=== PATIENT | female | born 1940 | race Caucasian/White ===

== ENCOUNTER 2017-05-08 17:57 | Inpatient (IN) | payer OTHER ==
[~2017-05-08] VITALS: Ht 160 cm; Wt 60.8 kg
[2017-05-08 17:58] VITALS: BP 143/67
[2017-05-08] MEDS ORDERED: BUSPIRONE HCL10 MG PO (18:11)
[2017-05-08] MEDS ORDERED: TRAZODONE 150150 M1 PO (18:11)
[2017-05-08] MEDS ORDERED: PYRIDOSTIGMINE60 M1 PO (18:12)
[2017-05-08] MEDS ORDERED: ANTIVERT25 MG PO (18:12)
[2017-05-08] MEDS ORDERED: HYDRALAZINE 10M10 MG PO (18:13)
[2017-05-08] MEDS ORDERED: CIPRO XR 500 M500 MG PO (18:13)
[2017-05-08] MEDS ORDERED: FLEXERIL PO (18:13)
[2017-05-08] MEDS ORDERED: ZOCOR20 MG PO (18:14)
[2017-05-08] MEDS ORDERED: OMEPRAZOLE10 MG PO (18:14)
[2017-05-08] MEDS ORDERED: HYDRALAZINE 2525 MG PO (18:14)
[2017-05-08] MEDS ORDERED: PREVACID15 MG PO (18:15)
[2017-05-08] MEDS ORDERED: ACID REDUCER200 MG PO (18:15)
--- NOTE | 2017-05-08 18:17 | NUR ---
PT'S FAMILY STATES THAT THE PATIENT HAS ONLY ONE WORKING KIDNEY.
[2017-05-08 18:34] LABS: HEMATOCRIT 32.5 % (37.0-47.0); HEMOGLOBIN 10.5 gm/dL (12.0-15.0); MCH 28.5 pg (26.0-34.0); MCHC 32.4 g/dL (28.0-37.0); MCV 88.1 fL (80.0-100.0); MPV 7.2 fl. (7.2-11.1); NUCLEATED RBCS 0 /100WBC; PLATELET COUNT* 324 thou/uL (150-400); RBC 3.69 mil/uL (4.20-5.00); RDW-CV 15.1 % (10.5-14.5); WBC 12.5 thou/uL (4.0-11.0)
[2017-05-08 18:42] LABS: ANION GAP 9 mmol/L (7-16); BUN 10 mg/dL (7-18); CHLORIDE 98 mmol/L (98-107); CO2 27 mmol/L (21-32); GLUCOSE 135 mg/dL (70-99); POTASSIUM 3.1 mmol/L (3.5-5.1); SODIUM 134 mmol/L (136-145)
[2017-05-08 18:48] LABS: ALBUMIN 3.4 g/dL (3.4-5.0); ALKALINE PHOSPHATASE 66 U/L (46-116); MAGNESIUM 1.5 mg/dL (1.8-2.4); SGOT 23 U/L (15-37); SGPT 22 U/L (30-65); TOTAL BILIRUBIN 0.5 mg/dL (<0.1-1.0); TROPONIN-I LEVEL <0.06 ng/mL (<0.06)
[2017-05-08 18:54] LABS: URINE BILIRUBIN NEGATIVE (Negative); URINE BLOOD NEGATIVE (Negative); URINE CLARITY CLEAR; URINE COLOR YELLOW; URINE GLUCOSE-RANDOM NEGATIVE (Negative); URINE KETONES TRACE (Negative); URINE LEUKOCYTES-REFLEX NEGATIVE (Negative); URINE NITRITE-REFLEX NEGATIVE (Negative); URINE PROTEIN TRACE (Negative); URINE SPECIFIC GRAVITY >= 1.030 (1.005-1.030); URINE UROBILINOGEN 0.2 E.U./dl (0.2-1.0)
[2017-05-08 18:55] LABS: APTT 35.9 Seconds (25.0-31.3); INR 1.1; PROTIME 10.7 Seconds (9.20-11.50)
[2017-05-08 19:04] LABS: ABSOLUTE BASOPHILS 0.1 thou/uL (0.0-0.2); ABSOLUTE LYMPHOCYTES 0.9 thou/uL (0.8-5.3); ABSOLUTE NEUTROPHILS 10.5 thou/uL (1.6-8.1)
[2017-05-08 19:05] LABS: PLATELET ESTIMATE ADEQUATE
[2017-05-08 20:58] VITALS: BP 155/68
[2017-05-08 21:25] VITALS: BP 167/85
[2017-05-09 00:03] VITALS: BP 178/95
[2017-05-09 03:57] VITALS: BP 151/82
--- NOTE | 2017-05-09 06:51 | NUR ---
Pt arrived from ED at 2114. Pt's dtr states that pt has been getting more confused recently, and states she thinks she has early Alzheimer's. States pt has likely been missing/forgetting doses of medication based on amount of meds left since prescriptions filled. BP elevated upon arrival, but improved as the shift progressed. ST per monitor, rate improved from 120-130 at arrival low 100's at this time. Pt on 3L O2 per NC, and she removed it on multiple occasions early in shift. Brooks draining clear yellow urine. C/O back pain with repositioning and movement. Oriented to self, but not always oriented to place and situation. Will continue to monitor.
[2017-05-09 08:12] VITALS: BP 167/90
[2017-05-09 09:51] LABS: MAGNESIUM 1.9 mg/dL (1.8-2.4); POTASSIUM 3.5 mmol/L (3.5-5.1)
--- NOTE | 2017-05-09 10:57 | NUR ---
ASSUMED CARE OF PT THIS AM AROUND 0715- DIE TROUBLE SHOOTER IN PLACE ORDERED, TRACING SR THIS AM- UPON ASSESSMENT PT NOTED TO BE RESTING IN BED- PT A&O 1-2 WITH NOTED CONFUSION-ASSIST X1 WITH TRANSFERS- CONTINENT OF BOWEL, HOANG IN PLACE D/D CLEAR/YELLOW URINE- LCTA, DIMINISHED IN LUNG BASES- VSS, O2 SAT 99% ON 3L VIA NC- NO DYSPNEA NOTED-ABDOMEN SOFT/ROUND/NON-TENDER, BS X4 QUADS- BM UNKOWN AT THIS TIME- IV NOTED TO LEFT AC INTACT AND SL, IV ABT GIVEN THIS AM PRESCRIBED- MG AND K+ REDARW THIS AM POST REPLACEMENT NOTED AT= K=-3.5, ADN MG 1.9- PT C/O PAIN 07/31 TO BACK THIS AM- DARK/QUIET ROOM AND REPOSITIONED PROVIDED- CALL LIGHT AND PERSONAL BELONGINGS WITH IN REACH- BED ALARM IN PLACE AND WORKING FOR PT SAFETY- HOURLY ROUNDS IN PLACE R/T SAFETY/NEEDS- ALL NEEDS MET AT THIS TIME-WCTM
[2017-05-09 11:32] VITALS: BP 165/88
--- NOTE | 2017-05-09 15:12 | NUR ---
CM ASSESSMENT: Pt is A&O. at bedside. Normally independent with ADLs, Pt states that she has a walker, cane and RW at home that she can use as needed. does most of the cooking and cleaning. Hx of HH, but do not remember the name of the agency. Hx of Skilled, said he thinks that she was at [place]. Pt does not wear home o2. Supportive family that is involved in POC. Pt's goal is to return home once medically stable. stated that he wants her home, but stated "she has to be able to get up and move, I've got a bad knee, I can't help her like that." Following for dc needs.
[2017-05-09 16:03] VITALS: BP 153/86
--- NOTE | 2017-05-09 17:35 | EKG ---
[place] [address] ELECTROCARDIOGRAM REPORT Name: THAO ROCHA Room: [address] ADM IN .R.#: [id number] Admission: 05/08/17 Attend Phys: Eliel Pfeiffer Discharge: Date of : 38 Report #: [id number] THIS REPORT FOR: //name// [facility] ED Test Date: 2017-05-08 Test Time: 18:05:15 Pat Name: THAO ROCHA Department: Room: [facility] Gender: F [place]: Halima NELSON : 1940 Requested By: Nohemy Peguero Order Number: [id number] MD: Zeke Park Measurements Intervals [place] Rate: 109 P: CO: QRS: -5 QRSD: 109 T: 209 QT: 336 QTc: 453 Interpretive Statements Atrial tachycardia Abnormal R-wave progression, early transition Repol abnrm suggests ischemia, anterolateral Compared to ECG 12/04/2006 06:28:41 Early repolarization now present Possible ischemia now present Sinus rhythm no longer present Electronically Signed On 05-09-2017 17:34:52 CORE ANALYST by Zeke Park [email or web address] <ELECTRONICALLY SIGNED> By: Zeke Park MD, FACC 05/09/17 1734 1805 1805 Zeke Park MD, FAC /EPI
--- NOTE | 2017-05-09 18:18 | NUR ---
PT CURRENTLY RESTING IN BED, DAUGHTER AT SIDE VISITTING- FINANCIAL COMPLIANCE EXAMINER CONTINUED ORDERED TRACING SR/ST THIS SHIFT- IV TO LEFT AC INTACT AND SL- GOOD PO INTAKE NOTED WITH MEALS- HOANG CONTINUED D/D CLEAR YELLOW URINE THIS SHIFT- PT UP TO BED SIDE THIS SHIFT, TOLERATING WELL- PT C/O PAIN THIS SHIFT, PRN HYDROCODONE ORDERS RECIVED AND GIVEN AT 1626 THIS SHIFT, PT REPORTS PAIN TO BE IMPROVED WITH MEDICATION- CALL LIGHT AND PERSOANL BELONGINGS WITH IN REACH- BED ALARM IN PLACE AND WORKING FOR PT SAFETY- FREQUENT CHECKS IN PLACE R/T SAFETY/NEEDS- ALL NEEDS MET AT THIS TIME-WCTM
[2017-05-09 19:58] VITALS: BP 128/66
[2017-05-10] VITALS (7 sets, daily range): BP systolic 112–156; BP diastolic 50–78
[2017-05-10 05:04] LABS: HEMATOCRIT 31.8 % (37.0-47.0); HEMOGLOBIN 10.4 gm/dL (12.0-15.0); MCH 28.6 pg (26.0-34.0); MCHC 32.7 g/dL (28.0-37.0); MCV 87.7 fL (80.0-100.0); MPV 7.7 fl. (7.2-11.1); RBC 3.63 mil/uL (4.20-5.00); RDW-CV 15.6 % (10.5-14.5); WBC 10.9 thou/uL (4.0-11.0)
--- NOTE | 2017-05-10 07:05 | NUR ---
Pt's HR 110s to 120s most of shift, then up to 140 for 20-30 minuites this am; now back down to 110s. Pt intermittently confused as to place and situation. Pleasant and cooperative. Ran low fever overnight, T-max 100. Will continue to monitor.
[2017-05-10 09:27] LABS: URINE BILIRUBIN NEGATIVE (Negative); URINE BLOOD NEGATIVE (Negative); URINE CLARITY CLEAR; URINE COLOR YELLOW; URINE GLUCOSE-RANDOM NEGATIVE (Negative); URINE KETONES 1+ (Negative); URINE LEUKOCYTES 2+ (Negative); URINE NITRITE POSITIVE (Negative); URINE PROTEIN 2+ (Negative); URINE UROBILINOGEN 0.2 E.U./dl (0.2-1.0)
[2017-05-10 09:40] LABS: BACTERIA >30 Many /HPF (None Seen); CASTS None Seen /LPF (None Seen); CRYSTALS None Seen /LPF (None Seen); SQUAMOUS 0-3 Few /LPF (0-3); TRANSITIONAL EPITHEL CELL 4-10 Moderate /LPF (None Seen); URINE RBC None Seen /HPF (0-2); URINE WBC >25 Many /HPF (0-5)
--- NOTE | 2017-05-10 10:04 | NUR ---
ASSUMED CARE OF PT THIS AM AROUND 0715- AIR BAG BUILDER IN PLACE ORDERED, TRACING ST THIS AM- UPON ASSESSMENT PT NOTED TO BE RESTING IN BED- PT A&O X1-2 WITH NOTED CONFUSSION- CONTINENT VS INCONTINENT OF BOWEL AND BLADDER- ASSIST X1 WITH TRANSFERS- LCTA, DIMINISHED IN BASES- VSS, O2 SAT 97% ON 3L VIA NC- OCCASSIONAL COUGH NOTED- ABDOMEN SOFT/ROUND/NON-TENDER, BS X4 QUADS- IV NOTED TO LEFT AC INTACT AND SL- IV ABT GIVEN THIS AM, NO ADVERSE REACTIONS TO NOTE-PT UP TO CHAIR THIS AM WITH BREAKFAST, GOOD PO INTAKE NOTED- CHEST X-RAY RESULTS ALONG WITH CLINICAL FINDINGS AND ST COMMUNICATED TO THIS AM- ORDERS RECIVED FOR BMP, IRON, PRE-ALBUMIN, UA THEN HOANG TO BE REMOVED- UA COLLECED AND SENT TO LAB, HOANG D/C'D THIS AM ORDERED- LIDOCAIN PATCH TO BACK INDICATED, MUSCLE RUB APPLIED WELL- PT DENIES ANY C/O PAIN/DISCOMFORT AT THIS TIME- CALL LIGHT AND PERSONAL BELONGINGS WITH IN REACH- BED/CHAIR ALARMS IN PLACE R/T SAFETY- HOURLY ROUNDS IN PLACE R/T SAFETY/NEEDS- ALL NEEDS MET AT THIS TIME-WCTM
[2017-05-10 10:37] LABS: CALCIUM 9.2 mg/dL (8.5-10.1); CREATININE 1.1 mg/dL (0.6-1.3); POTASSIUM 3.5 mmol/L (3.5-5.1)
[2017-05-10 11:19] LABS: % SATURATION 4 % (20-39); IRON 12 ug/dL (50-175)
--- NOTE | 2017-05-10 18:57 | NUR ---
PT CURRENLTY RESTING IN BED, WATCHING TV- CARDIAC MONIOTOR IN PLACE ORDERED, TRACING ST- HR NOTED TO BE ELEVATED IN 120'S-PT NOTED WITH LOW GRADE TEMP, AND UA POSITIVE- NORCO PRN GIVEN AT 1700 FOR TEMP 100.6 AND PAIN- HR WITH UT IMPROVEMENT- MACHINE MAINTENANCE SUPERVISOR NOTIFIED WITH ORDERS NOTED FOR NS @ 100ML/HR TO BE STARTED AND UA CULTURE TO BE COMPLETED- TEMP RECHECKED AND NOTED TO BE 98.6 AT THIS TIME-IV TO LEFT AC NOTED TO HAVE FALLEN OUT- NEW 22 GAUGE STARTED TO LEFT HAND- IVF STARTED AND CURRENTLY INFUSING PRESCIBED-PT WORKING WITH PT/OT THIS SHIFT, TOLERATING WELL-POST HOANG REMOVAL URINATION UNKNOWN AND NOT COMMUNICATED PER THERAPIES THEY MAY HAVE TOILETED PT- BLADDER SCAN PERFORMED TO EVALUATE AT 1700, AND NOTED WITH 163CC- CALL LIGHT AND PERSONAL BELONGINGS WITH IN REACH-BED ALARM IN PLACE AND WORKING FOR PT SAFETY- ALL NEEDS MET AT THIS TIME-WCTM
[2017-05-11] VITALS: BP 91/74
--- NOTE | 2017-05-11 04:52 | NUR ---
Pt incontinent of urine on 2-3 occasions. Pt will try to get out of bed when she needs to void, which sets off the bed alarm. At 0340, pt attempted to get out of bed to void, and was assisted to BSC. Pt disoriented, stating she wanted to know what happened to her . When she was told he is probably at home in bed, she states "he wouldn't leave me." She insisted that she was at home, denying that she was in the hospital. Pt was refusing to get in bed, and made accusations about this RN regarding the whereabaouts of her and lying about where she is. Pt eventually agreed to lie down in bed. C/O stopped up nose. Rt brought bubbler to elizabeth LERNER. ST per monitor, rate 110's to 130's. Will continue to monitor.
[2017-05-11 05:24] VITALS: BP 191/98
[2017-05-11 08:28] VITALS: BP 176/96
[2017-05-11 12:02] LABS: ABSOLUTE LYMPHOCYTES 0.9 thou/uL (0.8-5.3); ABSOLUTE MONOCYTES 0.8 thou/uL (0.0-1.2); ABSOLUTE NEUTROPHILS 6.3 thou/uL (1.6-8.1); BASOPHILS 0.3 %; EOSINOPHILS 0.2 %; HEMATOCRIT 29.1 % (37.0-47.0); HEMOGLOBIN 9.5 gm/dL (12.0-15.0); LYMPHOCYTES 11.8 %; MCH 28.6 pg (26.0-34.0); MCHC 32.6 g/dL (28.0-37.0); MCV 87.7 fL (80.0-100.0); MONOCYTES 9.7 %; MPV 7.4 fl. (7.2-11.1); NUCLEATED RBCS 0 /100WBC; PLATELET COUNT* 385 thou/uL (150-400); RBC 3.32 mil/uL (4.20-5.00); RDW-CV 15.3 % (10.5-14.5); WBC 8.1 thou/uL (4.0-11.0)
[2017-05-11 12:17] VITALS: BP 122/58
--- NOTE | 2017-05-11 14:46 | EKG ---
[place] [address] ELECTROCARDIOGRAM REPORT Name: THAO ROCHA Room: [address] ADM IN M.R.#: [id number] Admission: 05/08/17 Attend Phys: Eliel Pfeiffer Discharge: Date of : 38 Report #: [id number] THIS REPORT FOR: //name// [facility] Test Date: 2017-05-11 Test Time: 09:17:44 Pat Name: THAO ROCHA Department: Room: [address] Gender: F [employer] Learning Support Teacher: : 1940 Requested By: Darinel Saenz Order Number: [id number] Margaret MD: Zeke Park Measurements Intervals [place] Rate: 125 P: 21 WV: 163 QRS: 6 QRSD: 94 T: 169 QT: 320 QTc: 462 Interpretive Statements Sinus tachycardia Abnormal R-wave progression, early transition Nonspecific T abnormalities, lateral leads Compared to ECG 05/08/2017 18:05:15 T-wave abnormality now present Ectopic atrial tachycardia, unifocal no longer present Early repolarization no longer present Possible ischemia no longer present Electronically Signed On 05-11-2017 14:46:24 MINE PROMOTOR by Zeke Park [email or web address] <ELECTRONICALLY SIGNED> By: Zeke Park MD, FACC 05/11/17 1446 6 6 Zeke Park MD, FAC /EPI
--- NOTE | 2017-05-11 16:40 | CARDNUC ---
[place] [address] CARDIAC NUCLEAR IMAGING REPORT Name: THAO ROCHA Room: [address] IN [facility]#: [id number] Admission: 05/08/17 Attend Phys: Forrest Mitchell Discharge: Date of : 38 Date of Service: 05/11/17 1639 Report #: [id number] THIS REPORT FOR: //name// APPROVED REPORT Exam: Nuclear Stress Test Indication: chest pain, dyspnea Patient Location: In-Patient Room #: 222 Stress Tech: Georgia Carter Stress Nurse: Deisy Colby RN Ht: 5 ft 3 in Wt: 135 lbs BSA: 1.64 m2 BMI: 23.9 Medical History Medical History: hyperlipidemia, htn dm Medications: hydralazine Allergies: phenothiazines,nsaids,pcn,sulfa,lisinopril,compazine, phenergan,morphine,asa,cortizon,benadryl Cardiac Risk Factors: age, hyperlipidemia, htn, dm Exercise History: Sedentary NM EXAM: Myocardial Perfusion REST/STRESS Imaging Protocol: Rest Tc-99m/Stress Tc-99m 1 day Resting Data Rest SPECT myocardial perfusion imaging was performed in supine position 45 minutes following the intravenous injection of 10.8 mCi of Tc-99m Sestamibi. Time of rest injection: 1350 Date: 05/11/2017 The images were gated to evaluate regional wall motion and calculate left ventricular ejection fraction. Pharmacologic Stress Pharmacologic stress test was performed by injecting Dobutamine mg IV push followed by the intravenous injection of 36 mCi of Tc-99m Sestamibi. Time of stress injection: 1535 Date: 05/11/2017 Gated Stress SPECT was performed 45 minutes after stress injection. The images were gated to evaluate regional wall motion and calculate left ventricular ejection fraction[place] [address] CARDIAC NUCLEAR IMAGING REPORT Name: AJTHAO Martina Room: [address] IN ..#: [id number] Admission: 05/08/17 Attend Phys: Forrest Mitchell Discharge: Date of : 38 Date of Service: 05/11/17 1639 Report #: [id number] Study: Fair Artifact: Mild Diaphragmatic artifact Study Data At rest, the left ventricular ejection fraction was 86%.. Post stress, the left ventricular ejection was 78%.. TID = 1.03. Perfusion Myocardial perfusion images show in general uniform uptake of the radioisotope throughout the myocardium. There is some shadowing of the inferior wall consistent with diaphragmatic attenuation artifact. Wall Motion Normal left ventricular wall motion. Nuclear Conclusion ECG Findings: negative for ischemia Clinical Findings: negative for ischemia Nuclear Findings: negative for ischemia Exercise Capacity: not assessed Left Ventricular Function: normal Risk Study: low Myocardial perfusion images show no defect to suggest infarct or ischemia. Gated study showed normal left ventricular systolic function. This is a low risk study. Interpreted by: Zeke Park M.D. [facility] Electronically Approved: 05/11/2017 16:39:46 Stress Test Details Stress Test: Pharmacological stress testing performed using 1.5 mg of Dobutamine Reason for pharmacologic stress test: physical limitation. HR Resting HR: 115 bpm Max Heart Rate (APMHR): 143 bpm Max HR Achieved: 132 bpm Target HR (85% APMHR): 121 bpm % of APMHR: 92 Recovery HR: 124 bpm BP Resting BP: 174/90 mmHg Max BP: 153/81 [place] [address] CARDIAC NUCLEAR IMAGING REPORT Name: THAO ROCHA Room: [address]#: [id number] Admission: 05/08/17 Attend Phys: Forrest Mitchell Discharge: Date of : 38 Date of Service: 05/11/17 1639 Report #: [id number] ECG Resting ECG: Sinus Tachycardia Stress ECG: Sinus Tachycardia ST Change: None Arrhythmia: None Recovery ECG: Sinus Tachycardia Recovery ST Change: None Recovery Arrhythmia: None Clinical Reason for Termination: Completed protocol Exercise duration: 0 min sec Exercise capacity: 1 METs The patient had no significant symptoms with Lexiscan infusion. Nurse Comments pt tolerated well Stress ECG Conclusion The baseline 12 electrocardiogram showed sinus tachycardia without significant ST or T wave abnormality. EKGs obtained during and post Lexiscan stress showed sinus tachycardia with no significant ST or T wave changes when compared baseline. There were no stress-induced arrhythmias <Conclusion> The baseline 12 electrocardiogram showed sinus tachycardia without significant ST or T wave abnormality. EKGs obtained during and post Lexiscan stress showed sinus tachycardia with no significant ST or T wave changes when compared baseline. There were no stress-induced arrhythmias <ELECTRONICALLY SIGNED> By: Zeke Park MD, [facility] 05/11/17 1639 1639 1639 Zeke Park MD, FACC /INF
--- NOTE | 2017-05-11 18:00 | NUR ---
PT C/O OF BACK PAIN THIS SHIFT. PRN HYDROCODONE ADMININSTERER PER JUN. PT DOES NOT RATE PAIN LOWER BUT VERBALLY REPORTS IMPROVED PAIN. EARLIER THIS SHIFT PT REPORTED FEELING SHORT OF AIR, APPEARED SLIGHTLY ORTA AND C/O OF CHEST PAIN 12/31. EKG OBTAINED. SHOWED TO CARDIOLOGY. CALLED AND REPORTED POSSIBLE SLIGHT ST DEPRESSION IN V2 AND V3. PT COLOR RETURNED. RECEIVED ORDER TO DO TROPONIN, CHEST XRAY AND GIVE NITRO AND CONSULT CARDIOLOGY. PT REPORTS IMPROVEMENT IN PAIN AFTER 1 NITRO AND THEN STATES SHE MAY HAVE BEEN HAVING AN "ANXIETY ATTACK". TROPONIN NEGATIVE. RECEIVED ORDER TO CANCEL CARDIOLOGY CONSULT HOWEVER AT THIS TIME CARDIOLOGY HAD ALREADY SEEN PT AND PUT IN ORDERS. PT IMPULSIVE. BED ALARM ON.
[2017-05-11 20:00] VITALS: BP 170/93
[2017-05-12] VITALS: BP 141/74
[2017-05-12 04:00] VITALS: BP 148/87
[2017-05-12 05:20] LABS: HEMATOCRIT 27.1 % (37.0-47.0); HEMOGLOBIN 8.9 gm/dL (12.0-15.0); MCH 28.8 pg (26.0-34.0); MCHC 32.8 g/dL (28.0-37.0); MCV 87.7 fL (80.0-100.0); MPV 7.3 fl. (7.2-11.1); RBC 3.09 mil/uL (4.20-5.00); RDW-CV 15.7 % (10.5-14.5); WBC 8.3 thou/uL (4.0-11.0)
[2017-05-12 05:52] LABS: ALBUMIN 2.5 g/dL (3.4-5.0); ALKALINE PHOSPHATASE 85 U/L (46-116); ANION GAP 9 mmol/L (7-16); BUN 11 mg/dL (7-18); CALCIUM 8.5 mg/dL (8.5-10.1); CHLORIDE 104 mmol/L (98-107); CO2 26 mmol/L (21-32); CREATININE 0.7 mg/dL (0.6-1.3); GLUCOSE 124 mg/dL (70-99); MAGNESIUM 1.5 mg/dL (1.8-2.4); POTASSIUM 4.1 mmol/L (3.5-5.1); SGOT 32 U/L (15-37); SGPT 29 U/L (30-65); SODIUM 139 mmol/L (136-145); TOTAL BILIRUBIN 0.5 mg/dL (<0.1-1.0); TOTAL PROTEIN 5.3 g/dL (6.4-8.2); TROPONIN-I LEVEL <0.06 ng/mL (<0.06)
--- NOTE | 2017-05-12 07:49 | NUR ---
PT ALERT CONFUSED AT TIMES. WOKE UP LAST NIGHT AND THOUGHT SHE WAS IN THE BASEMENT AND WANTED TO KNOW WHY SHE DID NOT HAVE ANY DINNER. TELEMETRY SHOWS ST. PT STATED PAIN IN BACK. HYDROCODONE GIVEN TWICE.
[2017-05-12 08:00] VITALS: BP 146/72
--- NOTE | 2017-05-12 09:11 | CON ---
[address] [address] CONSULTATION Name: THAO ROCHA Room: [address] IN M.R.#: [id number] Admission: 05/08/17 Attend Phys: Eliel Pfeiffer Discharge: Date of : 38 Report #: [id number] THIS REPORT FOR: //name// CC: Kleber Mancilla INDICATION: Chest pain. HISTORY OF PRESENT ILLNESS: The patient is a very pleasant 76-year-old white female who was initially admitted to the hospital with complaints of weakness. She was being treated for a UTI. She also complained of some rather significant severe mid back pain. This was partially relieved with a Lidoderm patch. EKG shows sinus tachycardia with T-wave inversion. During this hospitalization, she has complained of intermittent chest discomfort off and on, not associated with exertion. She describes it as associated with diaphoresis and shortness of breath. Her also said she had a lot of heartburn. She has no prior cardiac history. Cardiac risk factors include hypertension and hyperlipidemia. She is a nonsmoker. At the time of my interview, she was not having chest pain. Serial EKGs here shows sinus tachycardia with some nonspecific ST segment depression in the anterior and lateral leads. Troponin initially was less than 0.06. Followup troponin is pending. Chest x-rays were significant for what appears to be mediastinal widening as well as significant gaseous extension of the sigmoid flexure of the colon. PAST MEDICAL HISTORY: 1. Hypertension. 2. GERD. 3. Hiatal hernia. 4. Hyperlipidemia. 5. History of anemia. 6. Nonfunctioning left kidney. 7. Osteoporosis. PAST SURGICAL HISTORY: 1. Hysterectomy. 2. Exploratory laparotomy. 3. Appendectomy. 4. Bladder suspension. 5. Evacuation of hematoma. 6. in 2004 and 2005. FAMILY HISTORY: Noncontributory. SOCIAL HISTORY: The patient is a lifelong nonsmoker. [place] [address] CONSULTATION Name: THAO ROCHA Room: [address]#: [id number] Admission: 05/08/17 Attend Phys: Eliel Pfeiffer Discharge: Date of : 38 Report #: [id number] REVIEW OF SYSTEMS: She has had fevers and chills. She reports dyspnea on exertion. She is not having orthopnea. She has midsternal chest discomfort and back pain as outlined above. She reports recent UTI with dysuria. A 14-point review of systems otherwise unremarkable. PHYSICAL EXAMINATION: VITAL SIGNS: Blood pressure 176/96, pulse is 125 and regular. GENERAL: This is a pleasant elderly female who does not appear to be in distress. HEENT: Normocephalic, atraumatic. Extraocular muscles are intact. Mucous membranes are moist. NECK: Shows no jugular venous distention. There are no carotid bruits. CHEST: Reveals clear lung harrison without wheezes or rales. CARDIAC: Reveals a regular rhythm that is tachycardic. I do not appreciate gallop or murmur. ABDOMEN: Reveals normal bowel sounds. EXTREMITIES: Show no significant edema. SKIN: Warm and dry. A 12-lead EKG shows sinus tachycardia with ST segment depression in the anterolateral leads. There is no evidence of ST elevation. IMPRESSION and RECOMMENDATION: 1. Atypical chest pain. We will proceed with noninvasive stress testing. Further intervention will be pending results of that study. 2. Tachycardia, possibly due to volume depletion. I will give her a liter of normal saline and low dose beta kourtney at this time. We will follow clinically. 3. Hypertension. The patient does appear to have significant hypertension. We will make adjustments to medications during this hospitalization. 4. Reported hyperlipidemia. The patient is on the low dose statin agent. <ELECTRONICALLY SIGNED> By: Zeke Park MD, FACC 05/12/17 0911 1158 1855Zeke Park MD, FACC /nt
[2017-05-12 16:38] VITALS: BP 164/93
--- NOTE | 2017-05-12 19:01 | NUR ---
ASSESSMENT COMPLETED REFER TO COMPTER CHARTING. HVAC TECH TRACKING SR. PATIENT REPORTING NO PAIN, NAUSEA OR SHORTNESS OF BREATH. BED IN LOW AND LOCKED POSITION. CALL LIGHT WITHIN REACH. IV SALINE LOCKED. ON 2 LITERS VIA NASAL CANNULA. WILL CONTINUE TO MONITOR.
[2017-05-12 20:00] VITALS: BP 115/77
[2017-05-12 23:43] VITALS: BP 135/87
[2017-05-13 05:08] LABS: HEMATOCRIT 29.2 % (37.0-47.0); HEMOGLOBIN 9.6 gm/dL (12.0-15.0); MCH 28.7 pg (26.0-34.0); MCHC 32.8 g/dL (28.0-37.0); MCV 87.6 fL (80.0-100.0); MPV 7.4 fl. (7.2-11.1); RBC 3.33 mil/uL (4.20-5.00); RDW-CV 15.5 % (10.5-14.5); WBC 7.8 thou/uL (4.0-11.0)
--- NOTE | 2017-05-13 05:18 | NUR ---
PT ALERT ORIENTED TO SELF. MAKES MANY ATTEMPTS TO GET OOB. VERY IMPULSIVE. HYDROCODONE GIVEN FOR BACK PAIN. TELEMETRY SHOWS SR. PT PULLED OUT IV AND NEW ONE STARTED LFA. WILL CONTINUE TO MONITOR.
[2017-05-13 05:43] LABS: ANION GAP 8 mmol/L (7-16); BUN 13 mg/dL (7-18); CHLORIDE 103 mmol/L (98-107); CHOLESTEROL 214 mg/dL (<200); CO2 29 mmol/L (21-32); CREATININE 0.8 mg/dL (0.6-1.3); GLUCOSE 119 mg/dL (70-99); HDL CHOLESTEROL 39 mg/dL (>40); LDL CHOLESTEROL 160 mg/dL (<100); MAGNESIUM 1.7 mg/dL (1.8-2.4); POTASSIUM 3.7 mmol/L (3.5-5.1); SODIUM 140 mmol/L (136-145); TC:HDL 5.5 Ratio (Not establshd); TRIGLYCERIDE 77 mg/dL (<150); VLDL 15 mg/dL (<40)
[2017-05-13 05:45] VITALS: BP 122/70
[2017-05-13 05:51] LABS: SERUM ASSESSMENT Clear
[2017-05-13 07:30] VITALS: BP 150/87
[2017-05-13 13:17] VITALS: BP 141/75
--- NOTE | 2017-05-13 15:43 | NUR ---
ASSESSMENT COMPLETED REFER TO COMPUTER CHARTING. REGULATORY PROCESS MANAGER TRACKING SR. PATIENT RESTING IN BED REPORTING NO PAIN, NAUSEA OR SHORTNESS OF BREATH. BED IN LOW AND LOCKED POSITION WITH BED ALARM SET AND FALL PRECAUTIONS IN PLACE. CALL LIGHT WITHIN REACH. PATIENT VERY IMPULSIVE. IV SALINE LOCKED. ON 3 LITERS VIA NASAL CANNULA. WILL CONTINUE TO MONITOR THIS SHIFT.
[2017-05-13 16:29] VITALS: BP 161/88
[2017-05-13 20:00] VITALS: BP 166/93
[2017-05-13 23:37] VITALS: BP 150/74
[2017-05-14 04:17] VITALS: BP 154/69
[2017-05-14 05:08] LABS: HEMATOCRIT 28.6 % (37.0-47.0); HEMOGLOBIN 9.8 gm/dL (12.0-15.0); MCH 28.9 pg (26.0-34.0); MCHC 34.4 g/dL (28.0-37.0); MCV 84.1 fL (80.0-100.0); RBC 3.39 mil/uL (4.20-5.00); RDW-CV 15.5 % (10.5-14.5)
--- NOTE | 2017-05-14 05:29 | NUR ---
PT CARE ASSUMED AFTER REPORT. ASSESSMENT COMPLETE. SR ON MONITOR. PT A/O X2 AT BEGINNING OF SHIFT. BECAME INCREASING MORE CONFUSED OVERNIGHT. IMPULSIVE AND DOES NOT FOLLOW DIRECTION. O2 2L NC. UP WITH ASSIST TO BSC. FALL PRECAUTIONS IN PLACE INCLUDING BED ALARM. CALL LIGHT IN REACH. BED IN LOWEST POSITION. PROGRESSING TOWARDS SOME GOALS.
[2017-05-14 05:44] LABS: CALCIUM 9.2 mg/dL (8.5-10.1); CREATININE 0.8 mg/dL (0.6-1.3); MAGNESIUM 1.9 mg/dL (1.8-2.4); POTASSIUM 4.4 mmol/L (3.5-5.1)
[2017-05-14 09:00] VITALS: BP 178/95
--- NOTE | 2017-05-14 10:26 | CON ---
[address] [address] CONSULTATION Name: HTAO ROCHA Room: [address] IN M.R.#: [id number] Admission: 05/08/17 Attend Phys: Eliel Pfeiffer Discharge: Date of : 38 Report #: [id number] THIS REPORT FOR: //name// CC: Kleber Mitchell DATE OF SERVICE: 05/13/2017 ATTENDING PHYSICIAN: Forrest Mitchell DO REASON FOR CONSULTATION: Possible pneumonia. HISTORY OF PRESENT ILLNESS: This is a 76-year-old white woman admitted through the Emergency Room with complaint of increasing weakness. The patient undergoes CT scanning of the chest that revealed some basilar pulmonary infiltrates. She is on treatment with Levaquin and vancomycin and we are asked to evaluate the patient. The patient tells me she does not know her age and she has no complaints or questions. She appears to be suffering with some degree of cognitive impairment. The extent of these is unknown to me. DRUG ALLERGIES: PHENOTHIAZINE, NONSTEROIDAL ANTI-INFLAMMATORY DRUGS, PENICILLIN, SULFA, LISINOPRIL, PROCHLORPERAZINE, MORPHINE, BACTRIM, PROMETHAZINE, CORTISONE AND PENICILLINS. MEDICATIONS: The patient is on treatment with atorvastatin and normal saline intravenously, potassium, magnesium supplementation per protocol, vancomycin 1 g IV 2 times daily, Levaquin 250 mg IV daily. She is also on metoprolol, p.r.n. nitroglycerin, albuterol, Atrovent inhalation treatments, pyridostigmine, methyl salicylate topical b.i.d., buspirone 10 mg b.i.d., hydralazine 25 mg p.o. t.i.d., lidocaine patch daily, p.r.n. acetaminophen, p.r.n. hydrocodone with acetaminophen. PAST MEDICAL HISTORY: History of appendectomy, bladder suspension, exploratory laparotomy for peptic ulcers. Hiatal hernia. Dyslipidemia. Previous small-bowel obstruction requiring exploratory laparotomy and lysis of that lesion. Nonfunctioning left kidney. SOCIAL HISTORY: See H and P. FAMILY HISTORY: See H and P. REVIEW OF SYSTEMS: See H and P and currently unable to obtain. PHYSICAL EXAMINATION: [place] [address] CONSULTATION Name: THAO ROCHA Room: [address]#: [id number] Admission: 05/08/17 Attend Phys: Eliel Pfeiffer Discharge: Date of : 38 Report #: [id number] GENERAL: A well-developed, nontoxic-looking woman in no distress whatsoever. VITAL SIGNS: Afebrile, temperature 97.9, pulse 97, respirations 18, BP 135/87. The patient is on nasal cannula O2, 2-3 liters per minute and O2 saturations are at 96% HEENMT: Head normocephalic, atraumatic. Pupils equal, heavy arcus cornealis. Mouth: Dry mucous membrane. NECK: Supple, no thyromegaly. LUNGS: Few basilar crackles. HEART: S1, S2. No gallop or murmur. ABDOMEN: Soft, no masses or megaly. It appears to be tender from what the patient is telling me, but she does not even flinch when I examined her abdomen. PELVIC AND RECTAL: Deferred. EXTREMITIES: No clubbing, cyanosis. NEUROLOGIC: Grossly within normal limits. LABORATORY DATA: On May 12, sodium 139, potassium 4.1, CO2 of 26, BUN 11, creatinine 0.7, glucose 124, magnesium 1.5. Albumin 2.5 g/dL. WBC on admission 12,400, hemoglobin 10.5 g/dL. Repeat CBC yesterday revealed a white blood cell count to be 8300, hemoglobin 8.9 g/dL, platelets 394,000. Prealbumin on May 10 is low at 11.3 mg/dL. Urinalysis on May 10 revealed pyuria and bacteriuria. Urine culture on the same day revealed greater than 100,000 colonies of Proteus species. No further identification or sensitivity provided yet. Blood cultures negative. Sputum revealed moderate WBCs and mixed ron. The sputum culture revealed many upper respiratory organisms. RADIOLOGY EVALUATION: Lumbar spine x-ray, no significant abnormalities. CT scan of the chest revealed infiltrate, atelectasis versus scarring of lower lungs bilaterally. Atherosclerotic ectasia of the thoracic aortic and chronic appearing elevation of left diaphragm. CT scan of the head on admission revealed atrophic changes. ASSESSMENT: 1. Bibasilar pulmonary infiltrates, question pneumonia. 2. Proteus urinary tract infection. 3. Anemia of chronic disease. 4. Dementia. SUGGESTIONS: Recommend continuing Levaquin. The patient does not appear to have MRSA pneumonia, favor discontinuation of this antibiotic. Continue current regimen. [place] [address] CONSULTATION Name: THAO ROCHA Room: [address] IN M.R.#: [id number] Admission: 05/08/17 Attend Phys: Eliel Pfeiffer Discharge: Date of : 38 Report #: [id number] Mitchell, thank you for requesting our suggestions in the care of your patient. <ELECTRONICALLY SIGNED> By: Mikael Todd MD 05/14/17 1026 0530 1837Guluis Todd MD /nt
[2017-05-14 13:30] VITALS: BP 179/85
--- NOTE | 2017-05-14 14:48 | NUR ---
ASSUMED PT CARE AT 0700 PT IS ALERT TO SELF PT IS A FALL RISK BED ALARM IS ON PT WAS MOVED FROM ROOM 211 TO 203 TO BE CLOSER TO THE NURSES STATION SINCE PT IS A HIGH FALL RISK PT IS UP WITH ASSIST WITH WALKER TO BEDSIDE COMMODE PT WORKED WITH PHYSICAL THERAPY THIS AFTERNOON, PT BLOOD PRESSURE ELEVATED NOTIFIED PHYSICIAN WHO ORDERED NORVASC ALONG WITH PT RECEIVING HYDRALAZINE AND METOPROLOL PT WENT FOR CHEST XRAY, WILL CONTINUE TO MONITOR
[2017-05-14 16:26] VITALS: BP 139/72
[2017-05-14 20:00] VITALS: BP 119/64
[2017-05-15] VITALS (7 sets, daily range): BP systolic 107–180; BP diastolic 52–89
--- NOTE | 2017-05-15 03:29 | NUR ---
PT ALERT TO SELF. IMPULSIVE AT TIMES. PT STATES IT HURTS SO BAD. WHEN ASKED WHERE SHE PUTS HER HANDS OVER BLADDER AREA. HYDROCODONE GIVEN TWICE. TELEMETRY SHOWS SR. FALL PRECAUTIONS IN PLACE. PT VERY IMPULSIVE. WILL CONTINUE TO MONITOR.
[2017-05-15 04:00] LABS: INFLUENZA A ANTIGEN None Detected (None Detect); INFLUENZA B ANTIGEN None Detected (None Detect)
--- NOTE | 2017-05-15 05:13 | NUR ---
BLADDER SCAN SHOWED 864. DR MCDERMOTT NOTIFIEDE. HOANG AND FLOMAX ORDERED. RETURN OF 850ML CLEAR YELLOW.
--- NOTE | 2017-05-15 13:32 | NUR ---
Nutrition: Pt assessed for LOS. Admitted with pneumonia, weakness. H/o dementia, UTI, HTN, renal obstruction. 2gm Na diet. Unsure of po intake today. BG 115, alb 2.5, prealb 11.5. Wt: stable at 147#. Booct Compact is ordered QID. We do not carry Boost Compact anymore: RD will order Boost+ QID. PLEASE ENCOURAGE GOOD PO INTAKE. Otherwise, Mild nutrition risk at this time. Will follow up per protocol.
--- NOTE | 2017-05-15 18:13 | NUR ---
ASSUMED PT CARE AT 0700 PT IS ALERT TO SELF PT DENIES PAIN OR SOA, PT IS UP WITH ASSIST TO BEDSIDE COMMODE PT IS A FALL RISK BED ALARM IS ON, PT IS CONFUSED BUT WILL FOLLOW SIMPLE COMMANDS PT WORKED WITH PHYSICAL THERAPY OT AND SPEECH TODAY PT MAY DISCHARGE TOMORROW, PT IS SR WITH 1ST ON THE MONITOR WILL CONTINUE TO MONITOR
[2017-05-16] VITALS: BP 153/83
--- NOTE | 2017-05-16 03:10 | NUR ---
PT ALERT ORIENTED TO SELF. FORGETFUL IMPULSIVE AT TIMES. ATTEMPTS TO GET OOB WITHOUT ASSIST OF NURSE. TELEMETRY SHOWS SR. HOANG IN PLACE FOR URINARY RETENTION. O2 AT 2 LITERS NC. PT REMOVES ON OCCASION. WILL CONTINUE TO MONITOR.
[2017-05-16 04:00] VITALS: BP 148/74
[2017-05-16 09:00] VITALS: BP 141/76
[2017-05-16 11:42] VITALS: BP 91/52
[2017-05-16 14:24] LABS: ABSOLUTE BASOPHILS 0.1 thou/uL (0.0-0.2); ABSOLUTE EOSINOPHILS 0.2 thou/uL (0.0-0.7); ABSOLUTE LYMPHOCYTES 1.8 thou/uL (0.8-5.3); ABSOLUTE MONOCYTES 1.2 thou/uL (0.0-1.2); ABSOLUTE NEUTROPHILS 7.3 thou/uL (1.6-8.1); EOSINOPHILS 1.4 %; HEMOGLOBIN 9.9 gm/dL (12.0-15.0); LYMPHOCYTES 17.3 %; MCH 28.6 pg (26.0-34.0); MCHC 32.1 g/dL (28.0-37.0); NUCLEATED RBCS 0 /100WBC; POLYS 69.3 %; RBC 3.47 mil/uL (4.20-5.00); RDW-CV 16.1 % (10.5-14.5); WBC 10.6 thou/uL (4.0-11.0)
[2017-05-16 14:25] LABS: MCV 89.3 fL (80.0-100.0); PLATELET COUNT* 656 thou/uL (150-400)
[2017-05-16 14:30] LABS: CALCIUM 9.3 mg/dL (8.5-10.1); CREATININE 1.2 mg/dL (0.6-1.3)
--- NOTE | 2017-05-16 15:33 | NUR ---
ASSUMED PT CARE AT 0700 PT IS ALERT TO SELF PT DENIES PAIN OR SOA ON 2L/NC, PT IS A FALL RISK BED ALARM IS ON, PHYSICIAN ORDERED TO REMOVE HOANG WHICH HOANG WAS REMOVED, GOT PT UP TO COMMODE AROUND 1530 HOANG REMOVED AROUND 1300 PT HAVING DIFFICULTY URINATING THIS NURSE PAGED PHYSICIAN AWAITING CALL BACK, PT IS SR 1ST ON MONITOR PT IS UP WITH ASSIST X 1 PT WORKED WITH PHYSICAL THERAPY AND SPEECH, PT MAY DISCHARGE AWAITING CALL BACK FROM PHYSICIAN, WILL CONTINUE TO MONITOR
[2017-05-16 16:39] VITALS: BP 102/61
[2017-05-16 20:00] VITALS: BP 125/66
[2017-05-16 22:49] LABS: URINE BILIRUBIN NEGATIVE (Negative); URINE BLOOD NEGATIVE (Negative); URINE CLARITY CLEAR; URINE COLOR YELLOW; URINE GLUCOSE-RANDOM NEGATIVE (Negative); URINE KETONES NEGATIVE (Negative); URINE LEUKOCYTES 1+ (Negative); URINE NITRITE NEGATIVE (Negative); URINE PROTEIN NEGATIVE (Negative); URINE SPECIFIC GRAVITY <= 1.005 (1.005-1.030); URINE UROBILINOGEN 0.2 E.U./dl (0.2-1.0)
[2017-05-16 23:01] LABS: SQUAMOUS 4-10 Moderate /LPF (0-3)
[2017-05-16 23:04] LABS: URINE WBC 6-15 Few /HPF (0-5)
[2017-05-16 23:07] LABS: BACTERIA 1-9 Few /HPF (None Seen); CASTS None Seen /LPF (None Seen); CRYSTALS None Seen /LPF (None Seen); MUCUS None Seen strn/LPF (None Seen)
[2017-05-17 00:06] VITALS: BP 131/73
--- NOTE | 2017-05-17 03:53 | NUR ---
PATIENT ORIENTED TO SELF ONLY, CONFUSED AND FORGETFUL. UP WITH ASSIST X1 TO BSC, VOIDING ADEQUATE AMOUNTS. DENIES PAIN. VITALS STABLE ON 3L O2 NC. SR WITH 1ST DEG AV BLOCK ON MONITOR. BED ALARM ON. WILL CONTINUE TO MONITOR.
[2017-05-17 04:15] VITALS: BP 118/75
[2017-05-17 05:55] LABS: HEMATOCRIT 30.1 % (37.0-47.0); HEMOGLOBIN 9.8 gm/dL (12.0-15.0); MCH 28.3 pg (26.0-34.0); MCHC 32.4 g/dL (28.0-37.0); MCV 87.4 fL (80.0-100.0); RBC 3.44 mil/uL (4.20-5.00); RDW-CV 15.6 % (10.5-14.5); WBC 9.1 thou/uL (4.0-11.0)
[2017-05-17 06:10] LABS: CALCIUM 9.2 mg/dL (8.5-10.1); CREATININE 0.9 mg/dL (0.6-1.3); MAGNESIUM 1.7 mg/dL (1.8-2.4); POTASSIUM 4.3 mmol/L (3.5-5.1)
[2017-05-17 08:00] VITALS: BP 106/59
[2017-05-17 12:00] VITALS: BP 104/61
[2017-05-17] MEDS ORDERED: CEFUROXIME250 MG PO (12:45)
[2017-05-17] MEDS ORDERED: TOPROL XL50 MG PO (12:47)
[2017-05-17] MEDS ORDERED: NORVASC10 MG PO (12:48)
[2017-05-17 13:28] VITALS: BP 106/59
[2017-05-17 13:54] VITALS: BP 106/59
--- NOTE | 2017-05-17 14:32 | NUR ---
PT D/C'D TO HOME. ALL CONSULTS OK WITH D/C. D/C'D IV AND CARDIAC MONITER. PT UP TO COMMODE URINATING WITH NO PROBLEM. EDUCATION GIVEN RE: FOLLOW UPS, MEDICATIONS, AND DRS ORDERS. VSS WNL. PT IS AFEBRILE. ALL BELONGINGS PACKED UP ANDLEFT WITH PT ACCOMPANIED BY AND STAFF MEMBER.
== END 2017-05-17 14:08 | disposition home health service (06) | DRG 871 ==
LOC: M.ERS 17:57 → M.TBA-ER 19:49 → M.2W 19:49
PROVIDERS: Emergency Medicine; Family Medicine; Internal Medicine; Nurse Practitioner Family; ADMIT Internal Medicine
DX: A41.9 Sepsis, unspecified organism (principal); J69.0 Pneumonitis due to inhalation of food and vomit; J15.6 Pneumonia due to other Gram-negative bacteria; G93.41 Metabolic encephalopathy; N39.0 Urinary tract infection, site not specified; J98.11 Atelectasis; I10 Essential (primary) hypertension; K21.9 Gastro-esophageal reflux disease without esophagitis; M81.0 Age-related osteoporosis without current pathological fracture; E86.0 Dehydration; R33.9 Retention of urine, unspecified; N28.89 Other specified disorders of kidney and ureter; E78.5 Hyperlipidemia, unspecified; R00.0 Tachycardia, unspecified; D63.8 Anemia in other chronic diseases classified elsewhere; F03.90 Unspecified dementia, unspecified severity, without behavioral disturbance, psychotic disturbance, mood disturbance, and anxiety; Z79.899 Other long term (current) drug therapy; Z90.710 Acquired absence of both cervix and uterus; Z88.6 Allergy status to analgesic agent; Z88.0 Allergy status to penicillin; Z88.2 Allergy status to sulfonamides; Z88.8 Allergy status to other drugs, medicaments and biological substances